=== PATIENT | female | born 1995 | race Caucasian/White ===

== ENCOUNTER → 2018-03-25 | Outpatient (CLI) | payer OTHER ==
[2016-12-12 05:10] VITALS: BMI 30.0
[~2018-03-25] MED LIST: CETI10CA8 PO; DIPH-911 PO; DIPH50LI; DOCU240C67 PO; FERR-53 PO; IBUP800T37 PO; LOR5/325 PO; PENI-24 PO; PER PO; PRED-1 PO; PRED20TA6 PO; PREN-127 PO; VIT-22 PO
[2018-03-25 13:50] LABS: PLATELET COUNT, AUTOMATED 199 K/uL (150-450)
== END ==
LOC: LAB 08:26
PROVIDERS: ATTEND Student in an Organized Health Care Education/Training Program
DX: Z34.91 Encounter for supervision of normal pregnancy, unspecified, first trimester (principal)
CPT/HCPCS: 36415; 81001; 85025; 86592; 86703; 86762; 86850; 86900; 86901; 87088; 87340

== ENCOUNTER → 2018-04-11 | Outpatient (CLI) | payer OTHER ==
[2016-12-12 05:10] VITALS: BMI 30.0
== END ==
LOC: LAB 13:36
PROVIDERS: ATTEND Student in an Organized Health Care Education/Training Program
DX: Z34.91 Encounter for supervision of normal pregnancy, unspecified, first trimester (principal)
CPT/HCPCS: 87491; 87591

== ENCOUNTER 2018-05-16 16:39 | Emergency (ER) | payer OTHER ==
[2016-12-12 05:10] VITALS: Wt 57.6 kg
[~2018-05-16 16:39] MED LIST changes: +FLU60VIA41 IM
[2018-05-16 16:45] VITALS: BP 110/71
--- NOTE | 2018-05-16 16:54 | ER Report ---
History and Physical Time Seen By MD: 16:47 Hx. of Stated Complaint: vomiting since 6am. now has diarrhea. worried about dehydration. 14 weeks HPI/ROS CHIEF COMPLAINT: Nausea, vomiting and diarrhea HISTORY OF PRESENT ILLNESS: This is a 23-year-old female, 14 weeks , who presents to the emergency department for nausea, vomiting and diarrhea. Patient states that she has had otherwise an unremarkable so far she is a , a few episodes of nausea during the otherwise unremarkable. Today she presents with nausea, vomiting and diarrhea. No blood noted in either of those. No spotting, vaginal discharged, abdominal cramping or back pain. No fevers or chills. No chest pain or shortness of breath. REVIEW OF SYSTEMS: Constitutional: No fever, no chills. Eyes: No discharge. ENT: No sore throat. Cardiovascular: No chest pain, no palpitations. Respiratory: No cough, no shortness of breath. Gastrointestinal: As above. TOOL SUPERVISOR: As above. Genitourinary: No hematuria. Musculoskeletal: No back pain. Skin: No rashes. Neurological: No headache. Allergies: Coded Allergies: No Known Drug Allergies (Unverified , 05/16/18) Home Meds Active Scripts Ondansetron (ZOFRAN ODT) 4 Mg Tab.rapdis, 4 MG PO Q6H PRN for NAUSEA/VOMITING, #20 TAB.CELESTE Prov:MEHRAN ALLEN [facility]- 05/16/18 Reported Medications Vits W-Ca,Fe,Fa(<1MG) ( VITAMINS) 1 Each Tablet, 1 EACH PO DAILY, TAB 11/05/15 Past Medical/Surgical History The patient has a past medical and surgical history of allergic rhinitis, migraines, asthma, . Reviewed Nurses Notes: Yes Hx Smoking: No Smoking Status: Never Smoker Exposure to Second Hand Smoke?: No Hx Substance Use Disorder: No Hx Alcohol Use: No Constitutional Vital Sign - Last 24 Hours 05/16/18 16:45 Temp 98.2 Pulse 110 Resp 12 B/P (MAP) 110/71 Pulse Ox 97 O2 Delivery Room Air Physical Exam General Appearance: The patient is alert, has no immediate need for airway protection and no signs of toxicity. Eyes: Pupils equal and round no pallor or injection. ENT, Mouth: Mucous membranes are moist. Respiratory: There are no retractions, lungs are clear to auscultation. Cardiovascular: Regular rate and rhythm. Gastrointestinal: Abdomen is soft, mild tenderness with palpation throughout the abdomen, no masses, bowel sounds normal. Neurological: Alert and oriented 4. Moving all tremors. Following all commands. No focal neuro deficits. Skin: Warm and dry, no rashes. Musculoskeletal: Neck is supple non tender. Extremities are nontender, nonswollen and have full range of motion. DIFFERENTIAL DIAGNOSIS: After history and physical exam differential diagnosis abdominal pain in a female including but not limited to ovarian cyst, pelvic inflammatory disease, ovarian torsion, urinary tract infection, and appendicitis. Medical Decision Making Data Points Result Diagram: 05/16/18 1652 05/16/18 165 Laboratory Hematology Test 05/16/18 16:45 05/16/18 16:52 Urine Color Yellow Urine Clarity Slightly-cloudy Urine pH 5.0 pH (4.8-9.5) Urine Specific [place] 1.032 Urine Protein 30 mg/dL (NEGATIVE) Urine Glucose (UA) Negative mg/dL (NEGATIVE) Urine Ketones 80 mg/dL (NEGATIVE) Urine Blood Negative (NEGATIVE) Urine Nitrite Negative (NEGATIVE) Urine Bilirubin Negative (NEGATIVE) Urine Urobilinogen 2.0 mg/dL (0.2-1.9) Urine Leukocyte Esterase Negative (NEGATIVE) Urine RBC 2 /HPF (0-2/HPF) Urine WBC 2 /HPF (0-5/HPF) Urine Squamous Epithelial Cells Many /LPF (</=FEW) Urine Bacteria Negative /HPF (NONE-FEW) Urine Mucus Few /HPF (NONE-FEW) Red Blood Count 5.56 M/uL (4.17-5.56) Mean Corpuscular Volume 83.7 fL (80.0-96.0) Mean Corpuscular Hemoglobin 28.5 pg (26.0-33.0) Mean Corpuscular Hemoglobin Concent 34.0 g/dL (32.0-36.0) Red Cell Distribution Width 13.4 % (11.5-14.5) Mean Platelet Volume 10.6 fL (7.2-11.1) Neutrophils (%) (Auto) 93.7 % (39.4-72.5) Lymphocytes (%) (Auto) 3.6 % (17.6-49.6) Monocytes (%) (Auto) 2.5 % (4.1-12.4) Eosinophils (%) (Auto) 0.0 % (0.4-6.7) Basophils (%) (Auto) 0.2 % (0.3-1.4) Nucleated RBC Relative Count (auto) 0.1 /100WBC Neutrophils # (Auto) 11.8 K/uL (2.0-7.4) Lymphocytes # (Auto) 0.5 K/uL (1.3-3.6) Monocytes # (Auto) 0.3 K/uL (0.3-1.0) Eosinophils # (Auto) 0.0 K/uL (0.0-0.5) Basophils # (Auto) 0.0 K/uL (0.0-0.1) Nucleated RBC Absolute Count (auto) 0.01 K/uL Peripheral Blood Smear Yes Y/N Sodium Level 138 mmol/L (137-145) Potassium Level 3.6 mmol/L (3.5-5.0) Chloride Level 101 mmol/L (98-107) Carbon Dioxide Level 20 mmol/L (22-31) Blood Urea Nitrogen 13 mg/dl (7-18) Creatinine 0.60 mg/dl (0.52-1.04) Glomerular Filtration Rate Calc > 60.0 Random Glucose 111 mg/dl (75-110) Calcium Level 9.7 mg/dl (8.4-10.2) Total Bilirubin 0.8 mg/dl (0.2-1.3) Aspartate Amino Transf (AST/SGOT) 27 U/L (0-35) Alanine Aminotransferase (ALT/SGPT) 26 U/L (0-56) Alkaline Phosphatase 57 U/L (0-126) Total Protein 8.2 g/dl (6.3-8.2) Albumin 4.5 g/dl (3.5-5.0) Lipase 75 U/L (23-300) Chemistry Test 05/16/18 16:45 05/16/18 16:52 Urine Color Yellow Urine Clarity Slightly-cloudy Urine pH 5.0 pH (4.8-9.5) Urine Specific [place] 1.032 Urine Protein 30 mg/dL (NEGATIVE) Urine Glucose (UA) Negative mg/dL (NEGATIVE) Urine Ketones 80 mg/dL (NEGATIVE) Urine Blood Negative (NEGATIVE) Urine Nitrite Negative (NEGATIVE) Urine Bilirubin Negative (NEGATIVE) Urine Urobilinogen 2.0 mg/dL (0.2-1.9) Urine Leukocyte Esterase Negative (NEGATIVE) Urine RBC 2 /HPF (0-2/HPF) Urine WBC 2 /HPF (0-5/HPF) Urine Squamous Epithelial Cells Many /LPF (</=FEW) Urine Bacteria Negative /HPF (NONE-FEW) Urine Mucus Few /HPF (NONE-FEW) White Blood Count 12.6 k/uL (4.5-11.0) Red Blood Count 5.56 M/uL (4.17-5.56) Hemoglobin 15.8 g/dL (12.0-16.0) Hematocrit 46.5 % (34.0-47.0) Mean Corpuscular Volume 83.7 fL (80.0-96.0) Mean Corpuscular Hemoglobin 28.5 pg (26.0-33.0) Mean Corpuscular Hemoglobin Concent 34.0 g/dL (32.0-36.0) Red Cell Distribution Width 13.4 % (11.5-14.5) Platelet Count 113 K/uL (150-450) Mean Platelet Volume 10.6 fL (7.2-11.1) Neutrophils (%) (Auto) 93.7 % (39.4-72.5) Lymphocytes (%) (Auto) 3.6 % (17.6-49.6) Monocytes (%) (Auto) 2.5 % (4.1-12.4) Eosinophils (%) (Auto) 0.0 % (0.4-6.7) Basophils (%) (Auto) 0.2 % (0.3-1.4) Nucleated RBC Relative Count (auto) 0.1 /100WBC Neutrophils # (Auto) 11.8 K/uL (2.0-7.4) Lymphocytes # (Auto) 0.5 K/uL (1.3-3.6) Monocytes # (Auto) 0.3 K/uL (0.3-1.0) Eosinophils # (Auto) 0.0 K/uL (0.0-0.5) Basophils # (Auto) 0.0 K/uL (0.0-0.1) Nucleated RBC Absolute Count (auto) 0.01 K/uL Peripheral Blood Smear Yes Y/N Glomerular Filtration Rate Calc > 60.0 Calcium Level 9.7 mg/dl (8.4-10.2) Total Bilirubin 0.8 mg/dl (0.2-1.3) Aspartate Amino Transf (AST/SGOT) 27 U/L (0-35) Alanine Aminotransferase (ALT/SGPT) 26 U/L (0-56) Alkaline Phosphatase 57 U/L (0-126) Total Protein 8.2 g/dl (6.3-8.2) Albumin 4.5 g/dl (3.5-5.0) Lipase 75 U/L (23-300) Urinalysis Test 05/16/18 16:45 Urine Color Yellow Urine Clarity Slightly-cloudy Urine pH 5.0 pH (4.8-9.5) Urine Specific [place] 1.032 Urine Protein 30 mg/dL (NEGATIVE) Urine Glucose (UA) Negative mg/dL (NEGATIVE) Urine Ketones 80 mg/dL (NEGATIVE) Urine Blood Negative (NEGATIVE) Urine Nitrite Negative (NEGATIVE) Urine Bilirubin Negative (NEGATIVE) Urine Urobilinogen 2.0 mg/dL (0.2-1.9) Urine Leukocyte Esterase Negative (NEGATIVE) Urine RBC 2 /HPF (0-2/HPF) Urine WBC 2 /HPF (0-5/HPF) Urine Squamous Epithelial Cells Many /LPF (</=FEW) Urine Bacteria Negative /HPF (NONE-FEW) Urine Mucus Few /HPF (NONE-FEW) ED Course/Re-evaluation Clinical Indication for ER IV: Hydration, IV Access ED Course The patient was admitted to room. A history of physical were obtained. Differential diagnoses were considered. An IV was started. A CBC, CMP were obtained. A UA was collected. A 1 L normal saline bolus was given. 4 mg IV Zofran was given. WBCs 12.6 with a left shift which is likely from the acute on set of vomiting and diarrhea. Chemistry unremarkable, concentrated urine consistent with the vomiting and diarrhea. The patient states she is feeling much better after the liter of fluid and Zofran. I did recommend that the patient contact Dr. Madrid tomorrow to see if he rather follow-up with her sooner than her May appointment. Patient is also given a prescription for Zofran. Instructed to increase fluids at home clear liquid diet for the next 24-48 hours. Patient had no other concerns, no abdominal cramping or flank pain, no spotting or vaginal discharge. The patient expressed understanding and will contact Dr. Madrid tomorrow morning. No other questions or concerns at this time and discharged home. We did attempt Doppler ultrasounds however we were unable to do this, the patient states that they were unable to do the Doppler ultrasound at her most recent appointment last week. Decision to Disposition Date: May 16, 2018 Decision to Disposition Time: 17:53 Depart Departure Latest Vital Signs Vital Signs Date Time Temp Pulse Resp B/P (MAP) Pulse Ox O2 Delivery O2 Flow Rate FiO2 05/16/18 16:45 98.2 110 12 110/71 97 Room Air Impression: Primary Impression: Gastroenteritis Condition: Improved Disposition: HOME OR SELF-CARE Referrals: JORGITO MADRID DO (PCP) New Scripts Ondansetron (ZOFRAN ODT) 4 Mg Tab.rapdis 4 MG PO Q6H PRN for NAUSEA/VOMITING, #20 TAB.CELESTE Prov: MEHRAN ALLEN PERSONAL CARE AIDE-BC 05/16/18 Patient Instructions: Clear Liquid Diet (ED), First Trimester (ED), Gastroenteritis (ED) Additional Instructions: Be sure to call Dr. Land office tomorrow to see if he would like you to follow up sooner than your May appointment. I would recommend a clear liquid diet for the next 24-48 hours, then ease back into a bland diet with items such as rice, noodles and bananas. Take the Zofran as needed for the nausea and vomiting. Return to the ED for any other concerns or worsening symptoms. Get plenty of rest. Drink plenty of fluids, small frequent sips. MEHRAN ALLEN PERSONAL CARE AIDE-BC May 16, 2018 16:54
[2018-05-16] MEDS ORDERED: NS(*) 0.9% 1000 ML BAG 1,000 ML IV ONE (16:59)
[2018-05-16] MEDS ORDERED: ONDANSETRON 4 MG/2 ML VIAL IVP ONE (17:00)
[2018-05-16 17:09] LABS: PLATELET COUNT, AUTOMATED 113 K/uL (150-450)
[2018-05-16] MEDS ORDERED: ONDA4TAB PO (17:54)
== END 2018-05-16 18:15 | disposition home or self-care (01) ==
LOC: ER 16:49
DX: O26.891 Other specified pregnancy related conditions, first trimester (principal)
CPT/HCPCS: 81001; 83690; 85025; 96361; 96374; 99284; J2405; J7030; 82040; 82247; 82310; 82374; 82435; 82565; 82947; 84075; 84132; 84155; 84295; 84450; 84460; 84520

== ENCOUNTER → 2018-06-27 | Outpatient (CLI) | payer OTHER ==
[2016-12-12 05:10] VITALS: BMI 30.0
[~2018-06-27] MED LIST changes: +ONDA4TAB PO
--- NOTE | 2018-06-27 10:37 | RADIOLOGY IMAGING REPORT ---
[place] [facility] [place] NAME: Silvia Maloney : 1995 MR: [id number] V: [id number] EXAM DATE: ORDERING PHYSICIAN: JORGITO MARX TECHNOLOGIST: Location: [facility] Patient: Silvia Maloney : 1995 Visit/Account:[id number] Date of Sevice: 06/27/2018 [facility] OB ANATOMICAL SURVEY HISTORY: COMPARISON: Anatomic survey TECHNIQUE: Transabdominal imaging was performed for assessment of the fetus and maternal pelvic s tructures. Transvaginal imaging was not performed. FINDINGS: Intrauterine gestations: One. presentation: Breech. With the head towards the maternal right heart rate: 142 bpm. Amniotic fluid volume: Normal; JACOB 17.97 cm; MVP 5.13 cm. Placenta: Anterior. Uterus: Gravid, otherwise grossly unremarkable where visualized. Maternal adnexa/ovaries: Grossly unremarkable, ovaries not visualized. Cervix: closed. Gestational Parameters: BPD: 4.65 cm, 48th percentile HC: 18 cm, 49th percentile AC: 14.96 cm, 41st percentile FL: 3.38 cm, 54th percentile Average ultrasound age (AUA): 20 weeks/ three days Estimated age based on LMP: 20 weeks/ two days Estimated weight (EFW): 350 grams +/- 51 grams, 51st percentile Anatomic Survey: Intracranial structures, 4-chamber heart, stomach, kidneys, urinary bladder, spine, 3-vessel cord and cord insertion are unremarkable. Two upper and two lower extremities visualized. IMPRESSION: Single viable fetus in breech presentation with an estimated gestational age by measurements of 20 we eks and three days. Made of weight is 350 g. Report Dictated By: Karen Balderas MD at 06/27/2018 10:28 AM Report E-Signed By: Karen Balderas MD at 06/27/2018 10:32 AM WSN:[email or web address]
== END ==
LOC: RAD 07:57
PROVIDERS: ATTEND Student in an Organized Health Care Education/Training Program
DX: Z02.9 Encounter for administrative examinations, unspecified (principal)

== ENCOUNTER → 2018-08-17 | Outpatient (CLI) | payer OTHER ==
[2016-12-12 05:10] VITALS: BMI 30.0
[~2018-08-17] MED LIST changes: +DIPH0.5D12 IM
[2018-08-17 16:51] LABS: PLATELET COUNT, AUTOMATED 129 K/uL (150-450)
== END ==
LOC: LAB 10:18
PROVIDERS: ATTEND Student in an Organized Health Care Education/Training Program
DX: Z34.92 Encounter for supervision of normal pregnancy, unspecified, second trimester (principal)
CPT/HCPCS: 36415; 82950; 85025

== ENCOUNTER → 2018-10-17 | Outpatient (CLI) | payer OTHER ==
[2016-12-12 05:10] VITALS: BMI 30.0
[~2018-10-17] MED LIST changes: +DOCU-416 PO; +LEVO50TA86 PO
== END ==
LOC: LAB 10:31
PROVIDERS: ATTEND Student in an Organized Health Care Education/Training Program
DX: O26.819 Pregnancy related exhaustion and fatigue, unspecified trimester (principal); Z36.85 Encounter for antenatal screening for Streptococcus B
CPT/HCPCS: 36415; 82040; 82247; 82310; 82374; 82435; 82565; 82947; 84075; 84132; 84155; 84295; 84443; 84450; 84460; 84520; 85027; 87081

== ENCOUNTER → 2018-10-19 | Outpatient (CLI) | payer OTHER ==
[2016-12-12 05:10] VITALS: BMI 30.0
--- NOTE | 2018-10-19 09:36 | RADIOLOGY IMAGING REPORT ---
FACILITY: [facility] - [place] PATIENT NAME: Silvia Maloney : 1995 MR: [id number] V: [id number] EXAM DATE: ORDERING PHYSICIAN: JORGITO MARX TECHNOLOGIST: Location: [facility] - [place] Patient: Silvia Maloney : 1995 Visit/Account:[id number] Date of Sevice: 10/19/2018 [facility] EXAMINATION: Renal ultrasound. History: Right flank pain during COMPARISON STUDIES: FINDINGS: Kidneys: Right kidney- 10.5 x 4.8 x 4.1 cm Left kidney- 10 x 5.3 x 4.6 cm Uniform and symmetric blood flow in each kidney by Doppler ultrasound. Hydronephrosis: Mild on the left Incompletely imaged is a intrauterine gestation. Resistive index on the right 0.7 and on the left 0.67 Bladder: Prevoid volume 382 mL. Post void residual 21 mL. Bilateral ureteral jets are present. Abdominal aorta and IVC: Aorta and IVC are patent by Doppler ultrasound. IMPRESSION: Mild left hydronephrosis Report Dictated By: Karen Balderas MD at 10/19/2018 9:00 AM Report E-Signed By: Karen Balderas MD at 10/19/2018 9:29 AM MICHELLEN:MOHAN
== END ==
LOC: US 01:00
PROVIDERS: ATTEND Student in an Organized Health Care Education/Training Program
DX: N13.30 Unspecified hydronephrosis (principal)
CPT/HCPCS: 76705

== ENCOUNTER 2018-10-21 11:34 | Outpatient (CLI) | payer OTHER ==
[~2018-10-21] VITALS: Ht 157.5 cm; Wt 70.8 kg
[2018-10-21 12:00] VITALS: BP 122/65; Ht 157.5 cm; Wt 70.8 kg
== END 2018-10-21 12:31 | disposition home or self-care (01) ==
LOC: OB 11:34 → L&D 11:34 → UNDOADMOB 11:34 → OB 11:34 → L&D 12:31 → UNDODISOB 12:31 → EDSTATUS 10-26 14:34
PROVIDERS: ATTEND Student in an Organized Health Care Education/Training Program
DX: O36.8130 Decreased fetal movements, third trimester, not applicable or unspecified (principal); Z3A.36 36 weeks gestation of pregnancy
CPT/HCPCS: 59025; G0378; G0379; 99213

== ENCOUNTER 2018-11-07 05:31 | Inpatient (IN) | payer OTHER ==
[~2018-11-07] VITALS: Ht 160 cm; Wt 73.0 kg
[~2018-11-07 05:31] MED LIST changes: -DIPH0.5D12 IM; +DIPH0.5S2 IM
[2018-11-07] MEDS ORDERED: ceFAZolin(*) 2GM/D5W 50ML 50 ML IVPB PRN (05:32)
[2018-11-07] MEDS ORDERED: FAMOTIDINE(*) 20MG/50ML PREMIX 50 ML IVPB PRN (05:32)
[2018-11-07] MEDS ORDERED: OXYTOCIN 30 UNIT/D5LR 500 ML 500 ML IV PRN ×2 (05:32)
[2018-11-07] MEDS ORDERED: LIDOCAINE/SOD BICARB 8.4% SYR SC PRN (05:35)
[2018-11-07] MEDS ORDERED: ACETAMINOPHEN 500 MG TAB PO PRN (05:35)
[2018-11-07] MEDS ORDERED: ONDANSETRON 4 MG/2 ML VIAL IVP PRN (05:35)
[2018-11-07] MEDS ORDERED: fentaNYL CITR 100 MCG/2 ML AMP IVP PRN (05:35)
[2018-11-07] MEDS ORDERED: METOCLOPRAMIDE 10 MG/2 ML SDV IVP PRN (05:35)
[2018-11-07] MEDS ORDERED: TERBUTALINE SULF 1 MG/ML VIAL SUBQ PRN (05:35)
[2018-11-07] MEDS ORDERED: LIDOCAINE 1% LOCAL 300 MG/30ML INJ PRN (05:35)
[2018-11-07] MEDS ORDERED: LR(*) 1000 ML BAG 1,000 ML ONE (05:46)
[2018-11-07] MEDS ORDERED: OXYTOCIN 30 UNIT/D5LR 500 ML 500 ML ONE (05:47)
[2018-11-07] MEDS: LR(*) 1000 ML BAG 1,000 ML IV PRN ×2 (06:05→09:16)
[2018-11-07 06:13] LABS: PLATELET COUNT, AUTOMATED 150 K/uL (150-450)
[2018-11-07 06:35] VITALS: BP 135/84; Ht 160 cm; Wt 73.0 kg
[2018-11-07] MEDS ORDERED: LIDO/EPI 2% MPF 1:200,000 20ML EPI PRN (07:55)
[2018-11-07] MEDS ORDERED: FENTANYL/ROPIVACAINE 100 ML BAG EPI PRN (07:55)
[2018-11-07] MEDS ORDERED: BUPIVACAINE 0.5% INJ 30ML VIAL EPI PRN (07:55)
[2018-11-07] MEDS ORDERED: BUPIVACAINE 0.25% MPF INJ EPI PRN (07:55)
[2018-11-07] MEDS ORDERED: LIDOCAINE/PF 2% 200MG/10ML AMP 200 MG/10 ML AMPUL EPI PRN (07:55)
[2018-11-07] MEDS ORDERED: fentaNYL CITR 100 MCG/2 ML AMP IT PRN (07:55)
[2018-11-07] MEDS ORDERED: ePHEDrine 25 MG/5 ML DISP.SYR IVP ONE (09:08)
--- NOTE | 2018-11-07 10:14 | Anesthesia OB Pre-Anes Eval ---
History of Present Illness Anesthesia Start Date: Nov 07, 2018 Anesthesia Start Time: 09:33 OB Anesthesia Diagnosis: induction - elective EDC: Nov 12, 2018 : 4 Para: 1 Vital Signs: Vital Signs Date Time Temp Pulse Resp B/P (MAP) Pulse Ox O2 Delivery O2 Flow Rate FiO2 11/07/18 06:35 97.4 116 22 135/84 (101) Room Air Pain Ratin (with contractions before epidural placement.) Result Diagram: 11/07/18 0602 Height (Inches): 63.00 Weight (Pounds): 161 Past Medical History Medical History: other (hypothyroidism) Surgical History: noncontributory Previous Anesthesia: epidural Attended Childbirth Classes?: No Hx Anesthesia Reactions: No Hx Family Anesthesia Reaction: No Past Complications: other (gestational thrombocytopenia requiring steroid treatment with last .) Home Meds Active Scripts Levothyroxine Sodium (LEVOTHYROXINE SODIUM) 50 Mcg Tablet, 50 MCG PO QDAY, #45 TAB 1 Refill Prov:JORGITO MARX 10/18/18 Reported Medications Docusate Sodium (COLACE) 100 Mg Capsule, 100 MG PO DAILY, CAPSULE 09/08/18 Vits W-Ca,Fe,Fa(<1MG) ( VITAMINS) 1 Each Tablet, 1 EACH PO DAILY, TAB 11/05/15 Allergies: Coded Allergies: No Known Drug Allergies (Unverified , 05/16/18) Anesthesia OB ROS Neurological: migraines/headaches ENT: Denies Tooth caps, Denies Loose teeth, Denies Chipped teeth, Denies Dentures, Denies Bridges, Denies Retainers, Denies Veneers, Denies Implants, Denies Tongue ring, Denies Other Pulmonary: asthma (exercise induced.) Airway Class: ll Cardiovascular ROS: No edema, No arrhythmia, No other GI ROS: clear liquids ROS: No Herpes, No STD(s), No Liver Disease, No Renal Disease, No Other Endocrine ROS: thyroid disorder (hypothyroidism) Musculoskeletal ROS: No low back pain, No low back injury, No scoliosis, No other ASA Classification: 2 Assessment and Plan Anesthesia Plan: LEB (dural puncture technique) DOUG ESCALANTE CRNA Nov 07, 2018 10:14
--- NOTE | 2018-11-07 10:18 | Procedure Note ---
Anesthetic Placement Note Anesthesia Plan: LEB Permit for Anesthesia Signed: Yes Anesthesia Technique: Patient Sitting Anesthesia Prep: Chlorhexidine Interspace: L 3-4 Local Anesthetic: 1% Lidocaine, 25 Gauge Needle Amount Local - cc's: 3 Anesthesia Needle: 17g Touhy/Schliff Anesthesia Attempts: 1 Loss of Resistance: Normal Saline Depth of ROYAL (cm): 4 Epidural Needle Placement: No CSF, No Blood, No Parasthesia Intrathecal Needle: 27 Gauge Pencan Cerebral Spinal Fluid: Yes, Clear Catheter Insertion (cm): 9 (9 cm at skin.) Catheter Type: Mirza - Spring Wound Epidural Dressing: Tegaderm, Tape Anesthesia Tray: Lot Number ([id number]), Expiration Date (03/18/2020), Reference Number ([id number]) Anesthesia Medications: Epidural Test Dose: 1.5 Lido/Epi (1:200,000), Dose - mL (5 mL incrementally), Time (0948), Negative Epidural Loading Dose: 0.2% Ropivicaine, With Fentanyl 2mcg/ml, Dose - ml (5), Time (0959) Epidural Infusion: 0.2% Ropivicaine, With Fentanyl 2mcg/ml, Start Time: (0959) Epidural Pump Setting: Bolus Dose - mL (5), Lockout - Minutes (20), Maintenance Rate - mL/hr (7), Maximum per Hour - mL (17) Complications: None Comment: 100 mcg Fentanyl via epidural at 0952 DOUG ESCALANTE CRNA Nov 07, 2018 10:18
--- NOTE | 2018-11-07 11:38 | Anesthesia Progress Note ---
Progress/Maintenance Anesthesia Note Date: Nov 07, 2018 Anesthesia Note Time: 11:32 Pain Intensity: 0 Pump: On Pump Rate (ML/HR): 7 Motor Level: Bending Knees-Bilateral Dilatation: 10 Assessment and Plan Anesthesia Plan: LEB Assessment: Male delivered at [address] Madrid Anesthesia Stop Day: Nov 07, 2018 Anesthesia Stop Time: 11:32 DOUG ESCALANTE CRNA Nov 07, 2018 11:38
[2018-11-07] MEDS ORDERED: LANOLIN OINT 7 GM TUBE TP PRN (12:45)
[2018-11-07] MEDS ORDERED: HYDROCORTISONE 2.5% CR 30GM TB PR PRN (12:45)
[2018-11-07] MEDS ORDERED: BENZOCAINE 20% 60 ML BTL TP PRN (12:45)
[2018-11-07] MEDS ORDERED: ACETAMINOPHEN 325 MG TAB PO PRN (12:45)
[2018-11-07] MEDS ORDERED: MAGNESIUM HYDROXIDE* 30ML UDCP PO PRN (12:45)
[2018-11-07] MEDS ORDERED: GLYCERIN/WITCH HAZEL LEAF 1 PK TOP PRN (12:45)
[2018-11-07] MEDS: IBUPROFEN 800 MG TAB PO SCH ×2 (13:26→20:25)
[2018-11-07 15:50] VITALS: BP 120/63
--- NOTE | 2018-11-07 16:09 | History & Physical ---
History of Present Illness Age of Patient: 23 : 4 Para or TPAL: 1 EDC per LMP: Nov 12, 2018 Estimated Gestational Age: 39.2 Chief Complaint IOL History of Present Illness 23-year-old 4 para 1 at 39-2/7 weeks gestation by a 1st trimester ultrasound who presents to labor and delivery for an induction of labor. Patient denies any contractions. Reports good movement. Reports no loss of amniotic fluid or vaginal bleeding. History Rubella Status: Immune Group B Strep Screen: Negative Obstetrical History: . 1 with history of gestational thrombocytopenia at that . SAB 2. Past Medical History: Hypothyroid History of gestational thrombocytopenia with last Allergies: Coded Allergies: No Known Drug Allergies (Unverified , 05/16/18) Social History: , present and supportive. Works at [employer]. No use of alcohol, tobacco, or illicit drugs. S/P: Randy Med Rec Home Meds Active Scripts Levothyroxine Sodium (LEVOTHYROXINE SODIUM) 50 Mcg Tablet, 50 MCG PO QDAY, #45 TAB 1 Refill Prov:JORGITO MARX DO 10/18/18 Reported Medications Docusate Sodium (COLACE) 100 Mg Capsule, 100 MG PO DAILY, CAPSULE 09/08/18 Vits W-Ca,Fe,Fa(<1MG) ( VITAMINS) 1 Each Tablet, 1 EACH PO DAILY, TAB 11/05/15 Review of Systems All Systems Reviewed/Normal: Yes, Except as Noted Constitutional: No Fever, No Weight Loss, No Weight Gain, No Chills, No Night Sweats, No Other Neurological: No Syncope, No Confusion, No Weakness, No Dizziness, No Slurred Speech, No Other Eyes: No Vision Change, No Loss of Vision, No Photophobia, No Other ENT: No Hearing Loss, No Sinus Congestion, No Sore Throat, No Ear Ache, No Tinnitus, No Other Cardiovascular: No Chest Pain, No Palpitations, No Orthostatic Hypotension, No Other Respiratory: No Shortness of Breath, No Cough, No Wheezing, No Other Gastrointestinal: No Nausea, No Vomiting, No Diarrhea, No Dysphagia, No Constipation, No Early Satiety, No Hematemesis, No Hematochezia, No Melena, No Abdominal Pain, No Other Genitourinary: No Dysuria, No Hematuria, No Urinary Incontinence, No Other Musculoskeletal: No Pain, No Sprain, No Strain, No Impaired Mobility, No Other Psychiatric: No Depression, No Anxiety, No Other Exam General Exam Vital Signs Vital Signs Date Time Temp Pulse Resp B/P (MAP) Pulse Ox O2 Delivery O2 Flow Rate FiO2 11/07/18 06:35 97.4 116 22 135/84 (101) Room Air General Apperance: Alert/Awake/No Acute Distress Neuro: No Gross deficits Eyes: Normal Extraocular Movement & Vison ENT: Normal Cardiovascular: Regular Rate and Rhythm Respiratory: No Respiratory Distress Abdomen: Soft, Non-Tender, Non-Distended, Gravid - Non-Tender : Normal Musculoskeletal: No Weakness/Pain Extremities: No Cyanosis,Clubbing or Edema Psychological: Alert & Oriented X3, Appropriate Mood & Affect Vaginal Discharge/Fluid?: Clear Fluid (with amniotomy) Cervical Dialation: 4 Cervical Effacement (%): 80 Cervical Consistency: Soft Cervical Position: Anterior Station: -2 Presentation: Vertex Uterine Contractions(Q min): 2 Uterine Contraction Strength: Mild UC Resting Tone: Soft Fetus Feeling Movement?: Yes Heart Tone Variabilty: Moderate FHT Accelerations: 15X15 FHT Decelerations: None FHT Category: I Medical Decision Making Data Points Result Diagram: 11/07/18 0602 Pre-Admit Course Medical Record Review: Yes VTE Prophylasis: Adult Deep Vein Thrombosis/Pulmonary: No Assessment and Plan PROCEDURE TECH Assessment: Stable PROCEDURE TECH Plan: Routine Labor/Induct Care Problems: (1) Elective induction of labor planned Status: Acute Assessment & Plan: Patient undergoing oxytocin induction status post amniotomy with clear amniotic fluid. Expect vaginal delivery. Epidural if want for pain control. (2) 39 weeks gestation of Status: Acute JORGITO MARX DO Nov 07, 2018 16:09
--- NOTE | 2018-11-07 16:15 | OB Delivery Note ---
Delivery Note Vaginal Delivery Type: Spont. Vaginal Delivery Delivery Date: Nov 07, 2018 Delivery Time: 11:32 Estimated Gestational Age(wks): 39.2 Length of Labor Stage I (hrs): 3 Length of Labor Stage II (hrs): 0.5 Labor Stage III (minutes): 6 Delivery Anesthesia: Epidural Infant Sex: Male Infant Weight (gms): 3442 (7#9oz) [place] Apgars: 1 Minute (9), 5 Minute (10) Repair Needed: Vaginal, 2nd Degree Estimated Blood Loss: 500 Grades 1 Through 5 Teacher in Attendence: JORGITO Dunne DO Nov 07, 2018 16:15
[2018-11-07] MEDS: APAP/HYDROCODONE 325/5 TAB PO PRN (19:29)
[2018-11-07 19:50] VITALS: BP 116/69
[2018-11-07] MEDS: DOCUSATE CALCIUM 240 MG CAP PO SCH (20:25)
[2018-11-07 23:30] VITALS: BP 108/62
--- NOTE | 2018-11-08 04:16 | DELIVERY NOTE ---
DELIVERY DATE: November 07, 2018 SURGEON: Rufino Madrid DO ANESTHESIA: Epidural. PREOPERATIVE DIAGNOSES 1. A 23-year-old 4, para 1, at 39-2/7 weeks' gestation. 2. Induction of labor. POSTOPERATIVE DIAGNOSES 1. A 23-year-old 4, para 1, at 39-2/7 weeks' gestation. 2. Induction of labor. 3. Delivered. PROCEDURE Spontaneous vaginal delivery with repair of second-degree midline and periclitoral lacerations. FINDINGS Live-born male at 1132 with Apgars of 9 and 10, weighing 3442 g (7 pounds 9 ounces); three-vessel cord; intact placenta over second-degree midline laceration. PATHOLOGY None. ESTIMATED BLOOD LOSS 500 mL. COMPLICATIONS None known. CONDITION Stable x2. Mother and to remain in the LDRP. COUNTS Correct for all needles, laps, sponges and instruments. LABOR SUMMARY Patient is a 23-year-old 4, para 1, at 39-2/7 weeks' gestation, who presented to Labor and Delivery for an elective labor induction. Patient was initially 4 cm on exam. She was started on Oxytocin, did achieve an adequate contraction pattern of contractions every two minutes. She then underwent amniotomy with clear amniotic fluid. Shortly after amniotomy, pain became intense, and patient desired an epidural for pain control. She was granted one accordingly. Patient progressed quickly to 10 cm, felt significant urge to push, was given proper instruction by nursing staff. After a few trial pushes, the delivery team was called and assembled. DELIVERY SUMMARY Patient was placed in dorsal lithotomy position. She was prepped and draped in the usual sterile manner. Upon maternal pushing, the 's head delivered in a controlled manner, followed by the anterior shoulders with gentle downward motion, the posterior shoulders with gentle upward motion, with the remainder of the infant's body delivering spontaneously. Mouth and nose were bulb-suctioned. The cord was clamped x2 and cut by the 's father. The infant remained on maternal chest during this entire process. Cord blood gases were obtained, and the placenta delivered spontaneously with gentle cord traction. Oxytocin was infused to help the uterine tone. Uterus was massaged and deemed firm. Next, upon inspection of the perineum, vagina, cervix, and labia, it was noted that there was a second-degree midline laceration as well as a periclitoral laceration. The second-degree midline laceration was repaired in the usual manner using a 3-0 Vicryl. The periclitoral laceration was repaired with a 4-0 Vicryl in interrupted manner. Once hemostasis was achieved, the patient was cleaned, the labor bed was reassembled, and the mother and were allowed to continue to yanez. DOMI
[2018-11-08 04:55] VITALS: BP 101/58
[2018-11-08] MEDS: IBUPROFEN 800 MG TAB PO SCH ×2 (04:58→14:23)
[2018-11-08] MEDS: APAP/HYDROCODONE 325/5 TAB PO PRN (07:47)
[2018-11-08 07:48] VITALS: BP 105/60
[2018-11-08] MEDS: DOCUSATE CALCIUM 240 MG CAP PO SCH (08:23)
[2018-11-08 11:22] VITALS: BP 109/58
--- NOTE | 2018-11-08 11:41 | Anesthesia Post Eval Note ---
Anesthesia Post Eval Note Vital Signs Date Time Temp Pulse Resp B/P (MAP) Pulse Ox O2 Delivery O2 Flow Rate FiO2 11/08/18 11:22 97.2 94 18 109/58 (75) 11/08/18 04:55 Room Air 11/07/18 15:50 93 Pt able to participate in Eval: Yes Cardiovascular Status: Satisfactory Respiratory Status: Satisfactory Pain Managment: Satisfactory PO Nausea/Vomiting: Satisfactory Temperature Management: Satisfactory Mental Status: Satisfactory, Alert, Oriented X3 Post-Op Hydration Status: Satisfactory, Tolerating PO Well, Voiding w/o Dif ficulty Anesthesia Type: LEB Anesthesia Tolerance: no anesthesia complications noted. DOUG ESCALANTE CRNA Nov 08, 2018 11:41
--- NOTE | 2018-11-08 11:56 | OB/GYN Progress Note ---
OB Subjective Progress Notes Subjective Patient is day #1 from a spontaneous vaginal delivery with second- degree midline laceration and periclitoral laceration. Today patient reports pain has been controlled with ibuprofen and Tylenol. Has not required any narcotic pain medicine for pain control. Patient states she's been ambulatory, voiding and having minimal bleeding with out any problems. Patient reports breast-feeding without any difficulty. Patient desires to be discharged home if possible today. GI: NEG Nausea, NEG Vomiting, NEG Flatus, NEG Bowel Movement : Voiding Well, Vaginal Bleeding, Moderate Pain: Mild, Comfortable, Tolerating PO Pain Meds Neurological: No Headache, No Other Eyes: No Visual Disturbances OB Objective Physical Exam Vital Signs Date Time Temp Pulse Resp B/P (MAP) Pulse Ox O2 Delivery O2 Flow Rate FiO2 11/08/18 11:22 97.2 94 18 109/58 (75) 11/08/18 04:55 Room Air 11/07/18 15:50 93 Intake and Output 11/08/18 07:00 Intake Total 3475 ml Output Total 250 ml Balance 3225 ml Intake Oral 2000 ml IV Total 1475 ml Output Urine Total 250 ml # Voids 10 General Appearance: Alert/Awake/No Acute Distress Neurological: No Gross deficits Eyes: Normal Extraocular Movement & Vison Cardiovascular: Normal Rhythm & Peripheral Pulses, Regular Rate and Rhythm Respiratory: No Respiratory Distress Abdomen: Soft, Non-Tender, Non-Distended, Fundus Firm Extremities: No Cyanosis,Clubbing or Edema Psychological: Alert & Oriented X3, Appropriate Mood & Affect Result Diagram: 11/08/18 0730 Assessment and Plan [employer] ADMINISTRATOR Plan: Routine Post- Care, Discharge Home Today Problems: (1) Elective induction of labor planned Status: Resolved (2) 39 weeks gestation of Status: Resolved Assessment & Plan: day #1 from a spontaneous vaginal delivery. Patient will be discharged home today. Patient follow up in 2 weeks for postpart um exam. Patient desires ibuprofen only for prescriptions. JORGITO MARX DO Nov 08, 2018 11:56
--- NOTE | 2018-11-08 11:59 | OB/GYN Discharge Summary ---
Discharge Summary Reason for Hosp/Final Diag: (1) Elective induction of labor planned Status: Resolved Hospital Course & Plan: Patient presented for an elective induction of labor she was noted to be 4 cm upon admission. Patient underwent oxytocin induction with amniotomy and quickly progressed to complete did receive an epidural for pain control. Patient delivered just before noon. Patient remained in the hospital for one day . She desired to be discharged home post day 1. Patient was ambulatory, voiding, breast-feeding without difficulty. Minimal bleeding. And tolerating regular diet. (2) 39 weeks gestation of Status: Resolved Lates Vital Signs Vital Signs Date Time Temp Pulse Resp B/P (MAP) Pulse Ox O2 Delivery O2 Flow Rate FiO2 11/08/18 11:22 97.2 94 18 109/58 (75) 11/08/18 04:55 Room Air 11/07/18 15:50 93 Weight (Pounds): 161 Result Diagram: 11/08/18 0730 Condition: Improved Discharge: Home Home Meds Active Scripts Levothyroxine Sodium (LEVOTHYROXINE SODIUM) 50 Mcg Tablet, 50 MCG PO QDAY, #45 TAB 1 Refill Prov:JORGITO MARX DO 10/18/18 Reported Medications Docusate Sodium (COLACE) 100 Mg Capsule, 100 MG PO DAILY, CAPSULE 09/08/18 Vits W-Ca,Fe,Fa(<1MG) ( VITAMINS) 1 Each Tablet, 1 EACH PO DAILY, TAB 11/05/15 Follow up with: [facility] [phone], Dr. Marx [phone] Follow up in: 6 wks PP or PO, 2 wks PO Discharge Diet: As Tolerates, Resume Prior Admit Diet, Increase Fluid Intake Discharge Activity: As Tolerates, Pelvic Rest JORGITO MARX DO Nov 08, 2018 11:59
[2018-11-09] MEDS ORDERED: INFLUENZA VIRUS VAC 0.5ML SYR IM ONLY ONE (09:00)
[2018-11-09] MEDS ORDERED: MEASLES,MUMP,RUBELLA VAC 0.5ML SUBQ ONE (09:00)
[2018-11-09] MEDS ORDERED: DIPHTH/TETANUS/ACEL. PERTUSSIS IM ONLY ONE (09:00)
== END 2018-11-08 14:54 | disposition home or self-care (01) | DRG 807 ==
LOC: OB 05:31
PROVIDERS: ADMIT Student in an Organized Health Care Education/Training Program; ATTEND Student in an Organized Health Care Education/Training Program
PROC: 10E0XZZ Delivery of Products of Conception, External Approach (ICD-10-PCS; principal; 2018-11-07)
PROC: 0KQM0ZZ Repair Perineum Muscle, Open Approach (ICD-10-PCS; 2018-11-07)
PROC: 10907ZC Drainage of Amniotic Fluid, Therapeutic from Products of Conception, Via Natural or Artificial Opening (ICD-10-PCS; 2018-11-07)
PROC: 3E033VJ Introduction of Other Hormone into Peripheral Vein, Percutaneous Approach (ICD-10-PCS; 2018-11-07)
DX: O99.284 Endocrine, nutritional and metabolic diseases complicating childbirth (principal); Z37.0 Single live birth; E03.9 Hypothyroidism, unspecified; O70.1 Second degree perineal laceration during delivery; Z3A.39 39 weeks gestation of pregnancy
CPT/HCPCS: 36415; 85025; 85027; 86850; 86900; 86901; J2590; J7120

== ENCOUNTER 2018-11-15 14:20 | Emergency (ER) | payer OTHER ==
[2018-11-07 06:35] VITALS: Wt 54.4 kg
--- NOTE | 2018-11-15 14:44 | ER Report ---
History and Physical Time Seen By MD: 14:44 Hx. of Stated Complaint: POST DAY 8. WENT TO RESTROOM. FELT LIKE SHE WAS "WETTING HER PANTS" AFTER. RETURNED TO BATHRROM AND SAW A STEADY STREAM OF BLOOD. DENIES ABD PAIN OR CRAMPS. HPI/ROS CHIEF COMPLAINT: bleeding HISTORY OF PRESENT ILLNESS: 23-year-old female patient presents to emergency room with complaint of bleeding. Patient states that she had been doing fine and hadn't noticed any blood for the last 2 days. She states today she went to the bathroom and she had done she felt like she was tripping. She states when she lost she saw blood. She put on a pad inside come in to the emergency room for further evaluation. Patient states that the blood seemed to pour out of her fairly quickly. Patient states she one come in and be evaluated. Patient states she does feel slightly lightheaded. She denies any nausea, vomiting or diarrhea. Patient denies having any fevers or chills. Patient denies having any pain. REVIEW OF SYSTEMS: Respiratory: No cough, no dyspnea. Cardiovascular: No chest pain, no palpitations. Gastrointestinal: No vomiting, no abdominal pain. Musculoskeletal: No back pain. Allergies: Coded Allergies: No Known Drug Allergies (Unverified , 11/15/18) Home Meds Active Scripts Methylergonovine Mal 0.2 Mg Tab (METHERGINE 0.2 MG TAB) 0.2 Mg Tablet, 0.2 MG PO Q6H, #3 TAB Prov:MYRNAHUYEN NILS 11/15/18 Levothyroxine Sodium (LEVOTHYROXINE SODIUM) 50 Mcg Tablet, 50 MCG PO QDAY, #45 TAB 1 Refill Prov:JORGITO MADRID DO 10/18/18 Discontinued Reported Medications Docusate Sodium (COLACE) 100 Mg Capsule, 100 MG PO DAILY, CAPSULE 09/08/18 Vits W-Ca,Fe,Fa(<1MG) ( VITAMINS) 1 Each Tablet, 1 EACH PO DAILY, TAB 11/05/15 Past Medical/Surgical History Patient has a past medical history of asthma, hypothyroidism. Patient denies any surgical history. Reviewed Nurses Notes: Yes Hx Smoking: Yes Smoking Status: Never Smoker Exposure to Second Hand Smoke?: Yes Hx Substance Use Disorder: No Hx Alcohol Use: No Constitutional Vital Sign - Last 24 Hours 11/15/18 11/15/18 11/15/18 11/15/18 14:35 15:28 15:29 15:30 Temp 98.3 Pulse 113 82 Resp 16 B/P (MAP) 118/85 100/66 (77) 107/69 (82) 103/74 (84) Pulse Ox 94 94 11/15/18 11/15/18 15:33 16:00 Pulse 73 80 75 94 B/P (MAP) 100/66 (77) 107/69 (82) 103/74 (84) Pulse Ox 94 94 O2 Delivery Room Air Physical Exam General Appearance: The patient is alert, has no immediate need for airway protection and no current signs of toxicity. Respiratory: Chest is non tender, lungs are clear to auscultation. Cardiac: regular rate and rhythm Gastrointestinal: Abdomen is soft and non tender, no masses, bowel sounds normal. Musculoskeletal: Neck: Neck is supple and non tender. Extremities have full range of motion and are non tender. Skin: No rashes or lesions. DIFFERENTIAL DIAGNOSIS: After history and physical exam differential diagnosis was considered for bleeding, retained products of conception. Medical Decision Making Data Points Result Diagram: 11/15/18 1508 11/15/18 1508 Laboratory Hematology Test 11/15/18 14:53 11/15/18 15:08 Urine Color Yellow Urine Clarity Slightly-cloudy Urine pH 6.0 pH (4.8-9.5) Urine Specific [place] 1.030 Urine Protein Trace mg/dL (NEGATIVE) Urine Glucose (UA) Negative mg/dL (NEGATIVE) Urine Ketones Negative mg/dL (NEGATIVE) Urine Blood Large (NEGATIVE) Urine Nitrite Negative (NEGATIVE) Urine Bilirubin Negative (NEGATIVE) Urine Urobilinogen 0.2 mg/dL (0.2-1.9) Urine Leukocyte Esterase Moderate (NEGATIVE) Urine RBC 35-45 /HPF (0-2/HPF) Urine WBC 25-30 /HPF (0-5/HPF) Urine Squamous Epithelial Cells Rare /LPF (</=FEW) Urine Bacteria Few /HPF (NONE-FEW) Urine Mucus None /HPF (NONE-FEW) Red Blood Count 4.62 M/uL (4.17-5.56) Mean Corpuscular Volume 84.7 fL (80.0-96.0) Mean Corpuscular Hemoglobin 28.2 pg (26.0-33.0) Mean Corpuscular Hemoglobin Concent 33.3 g/dL (32.0-36.0) Red Cell Distribution Width 12.9 % (11.5-14.5) Mean Platelet Volume 9.9 fL (7.2-11.1) Neutrophils (%) (Auto) 76.8 % (39.4-72.5) Lymphocytes (%) (Auto) 16.0 % (17.6-49.6) Monocytes (%) (Auto) 5.6 % (4.1-12.4) Eosinophils (%) (Auto) 1.1 % (0.4-6.7) Basophils (%) (Auto) 0.5 % (0.3-1.4) Nucleated RBC Relative Count (auto) 0.2 /100WBC Neutrophils # (Auto) 7.4 K/uL (2.0-7.4) Lymphocytes # (Auto) 1.5 K/uL (1.3-3.6) Monocytes # (Auto) 0.5 K/uL (0.3-1.0) Eosinophils # (Auto) 0.1 K/uL (0.0-0.5) Basophils # (Auto) 0.0 K/uL (0.0-0.1) Nucleated RBC Absolute Count (auto) 0.02 K/uL Prothrombin Time 13.1 seconds (12.0-14.4) Prothromb Time International Ratio 0.99 Activated Partial Thromboplast Time 30 seconds (23-35) Sodium Level 139 mmol/L (137-145) Potassium Level 3.7 mmol/L (3.5-5.0) Chloride Level 108 mmol/L (98-107) Carbon Dioxide Level 22 mmol/L (22-31) Blood Urea Nitrogen 16 mg/dl (7-18) Creatinine 0.90 mg/dl (0.52-1.04) Glomerular Filtration Rate Calc > 60.0 Random Glucose 114 mg/dl (75-110) Calcium Level 9.4 mg/dl (8.4-10.2) Total Bilirubin 0.3 mg/dl (0.2-1.3) Aspartate Amino Transf (AST/SGOT) 25 U/L (0-35) Alanine Aminotransferase (ALT/SGPT) 19 U/L (0-56) Alkaline Phosphatase 104 U/L (0-126) Total Protein 7.7 g/dl (6.3-8.2) Albumin 4.1 g/dl (3.5-5.0) Chemistry Test 11/15/18 14:53 11/15/18 15:08 Urine Color Yellow Urine Clarity Slightly-cloudy Urine pH 6.0 pH (4.8-9.5) Urine Specific [place] 1.030 Urine Protein Trace mg/dL (NEGATIVE) Urine Glucose (UA) Negative mg/dL (NEGATIVE) Urine Ketones Negative mg/dL (NEGATIVE) Urine Blood Large (NEGATIVE) Urine Nitrite Negative (NEGATIVE) Urine Bilirubin Negative (NEGATIVE) Urine Urobilinogen 0.2 mg/dL (0.2-1.9) Urine Leukocyte Esterase Moderate (NEGATIVE) Urine RBC 35-45 /HPF (0-2/HPF) Urine WBC 25-30 /HPF (0-5/HPF) Urine Squamous Epithelial Cells Rare /LPF (</=FEW) Urine Bacteria Few /HPF (NONE-FEW) Urine Mucus None /HPF (NONE-FEW) White Blood Count 9.6 k/uL (4.5-11.0) Red Blood Count 4.62 M/uL (4.17-5.56) Hemoglobin 13.0 g/dL (12.0-16.0) Hematocrit 39.1 % (34.0-47.0) Mean Corpuscular Volume 84.7 fL (80.0-96.0) Mean Corpuscular Hemoglobin 28.2 pg (26.0-33.0) Mean Corpuscular Hemoglobin Concent 33.3 g/dL (32.0-36.0) Red Cell Distribution Width 12.9 % (11.5-14.5) Platelet Count 297 K/uL (150-450) Mean Platelet Volume 9.9 fL (7.2-11.1) Neutrophils (%) (Auto) 76.8 % (39.4-72.5) Lymphocytes (%) (Auto) 16.0 % (17.6-49.6) Monocytes (%) (Auto) 5.6 % (4.1-12.4) Eosinophils (%) (Auto) 1.1 % (0.4-6.7) Basophils (%) (Auto) 0.5 % (0.3-1.4) Nucleated RBC Relative Count (auto) 0.2 /100WBC Neutrophils # (Auto) 7.4 K/uL (2.0-7.4) Lymphocytes # (Auto) 1.5 K/uL (1.3-3.6) Monocytes # (Auto) 0.5 K/uL (0.3-1.0) Eosinophils # (Auto) 0.1 K/uL (0.0-0.5) Basophils # (Auto) 0.0 K/uL (0.0-0.1) Nucleated RBC Absolute Count (auto) 0.02 K/uL Prothrombin Time 13.1 seconds (12.0-14.4) Prothromb Time International Ratio 0.99 Activated Partial Thromboplast Time 30 seconds (23-35) Glomerular Filtration Rate Calc > 60.0 Calcium Level 9.4 mg/dl (8.4-10.2) Total Bilirubin 0.3 mg/dl (0.2-1.3) Aspartate Amino Transf (AST/SGOT) 25 U/L (0-35) Alanine Aminotransferase (ALT/SGPT) 19 U/L (0-56) Alkaline Phosphatase 104 U/L (0-126) Total Protein 7.7 g/dl (6.3-8.2) Albumin 4.1 g/dl (3.5-5.0) Coagulation Test 11/15/18 15:08 Prothrombin Time 13.1 seconds Prothromb Time International Ratio 0.99 Activated Partial Thromboplast Time 30 seconds Urinalysis Test 11/15/18 14:53 Urine Color Yellow Urine Clarity Slightly-cloudy Urine pH 6.0 pH (4.8-9.5) Urine Specific [place] 1.030 Urine Protein Trace mg/dL (NEGATIVE) Urine Glucose (UA) Negative mg/dL (NEGATIVE) Urine Ketones Negative mg/dL (NEGATIVE) Urine Blood Large (NEGATIVE) Urine Nitrite Negative (NEGATIVE) Urine Bilirubin Negative (NEGATIVE) Urine Urobilinogen 0.2 mg/dL (0.2-1.9) Urine Leukocyte Esterase Moderate (NEGATIVE) Urine RBC 35-45 /HPF (0-2/HPF) Urine WBC 25-30 /HPF (0-5/HPF) Urine Squamous Epithelial Cells Rare /LPF (</=FEW) Urine Bacteria Few /HPF (NONE-FEW) Urine Mucus None /HPF (NONE-FEW) EKG/Imaging Imaging Transvaginal pelvic ultrasound INDICATION: 8 days with vaginal bleeding. COMPARISON: None Available FINDINGS: Uterus measures 13.4 x 6.5 x 10.5 cm. No visualized uterine mass. Double wall endometrial stripe is heterogeneously thickened measuring up to 14 mm. There is fluid and debris within the endometrial canal without visualized internal vascularity. There is no free fluid in the cul-de-sac. Urinary bladder is empty. Pelvic vessels appear unremarkable on this examination. Right ovary measures 2.1 x 1.5 x 1.6 cm and shows normal blood flow and contains several small follicles. Left ovary measures 2.4 x 1.7 x 1.6 cm and shows normal blood flow and contains several small follicles. IMPRESSION: 1. Fluid and debris within the endometrial canal with heterogeneous endometrial thickening. No internal vascularity to suggest retained products of conception however cannot be excluded. Report Dictated By: Velasquez Barnes MD at 11/15/2018 4:52 PM Report E-Signed By: Velasquez Barnes MD at 11/15/2018 4:55 PM ED Course/Re-evaluation ED Course Patient was admitted to an exam room, history physical were obtained. Differential diagnoses were considered. Examination lungs are clear, heart is regular, abdomen is soft and nontender. A CBC, CMP, PT, PTT were done. Lab results were unremarkable. Because patient was complaining of bleeding I did have a type and screen done which was negative. A pelvic ultrasound was done which showed no acute findings. At that time I discussed the case with Dr. Echols, home care chaplain. His recommendation was to go ahead and place the patient on Methergine 0.2 mg 4 times over the next 24 hours. The goal that is to make the uterus clamped down to help stop the bleeding. He also recommended the patient follow-up with Dr. Becker. I discussed this with the patient who verbalized understanding and agreement. We'll go ahead and discharge patient home at this time. Pelvic exam: The vulva was normal no lesions. The vagina did have some bloody discharge, sutures were intact. Patient did have tenderness towards the posterior aspect of the introitus. The exam was performed with a second crusher. Decision to Disposition Date: Nov 15, 2018 Decision to Disposition Time: 17:18 Depart Departure Latest Vital Signs Vital Signs Date Time Temp Pulse Resp B/P (MAP) Pulse Ox O2 Delivery O2 Flow Rate FiO2 11/15/18 16:00 80 94 11/15/18 15:33 100/66 (77) Room Air 107/69 (82) 103/74 (84) 11/15/18 14:35 98.3 16 Impression: Primary Impression: bleeding Condition: Improved Disposition: HOME OR SELF-CARE Referrals: JORGITO MADRID DO (PCP) New Scripts Methylergonovine Mal 0.2 Mg Tab (METHERGINE 0.2 MG TAB) 0.2 Mg Tablet 0.2 MG PO Q6H, #3 TAB Prov: HUYEN NORRIS 11/15/18 Patient Instructions: Bleeding (ED) Additional Instructions: Increase fluid intake. Get plenty of rest. Continue with your current medications. Follow up with Dr. Madrid, call tomorrow to make an appointment. Return to the ER if condition worsens. Problem Qualifiers Primary Impression: bleeding hemorrhage type: unspecified Qualified Codes: O72.1 - Other immediate hemorrhage HUYEN NORRIS Nov 15, 2018 14:44
[2018-11-15] MEDS ORDERED: NS(*) 0.9% 1000 ML BAG 1,000 ML IV ONE (14:49)
[2018-11-15 15:24] LABS: PLATELET COUNT, AUTOMATED 297 K/uL (150-450)
[2018-11-15 15:27] LABS: INR 0.99
[2018-11-15 15:33] VITALS: BP 103/74
--- NOTE | 2018-11-15 16:59 | RADIOLOGY IMAGING REPORT ---
[place] [facility] [place] NAME: Silvia Maloney : 1995 MR: [id number] V: [id number] EXAM DATE: [id number] ORDERING PHYSICIAN: HUYEN NORRIS TECHNOLOGIST: Location: [facility] Patient: Silvia Maloney : 1995 Visit/Account:[id number] Date of Sevice: 11/15/2018 Transvaginal pelvic ultrasound INDICATION: 8 days with vaginal bleeding. COMPARISON: None Available FINDINGS: Uterus measures 13.4 x 6.5 x 10.5 cm. No visualized uterine mass. Double wall endometrial stripe is heterogeneously thickened measuring up to 14 mm. There is fluid and debris within the endometrial canal without visualized internal vascularity. There is no free fluid in the cul-de-sac. Urinary bladder is empty. Pelvic vessels appear unremarkable on this examination. Right ovary measures 2.1 x 1.5 x 1.6 cm and shows normal blood flow and contains several small follic les. Left ovary measures 2.4 x 1.7 x 1.6 cm and shows normal blood flow and contains several small follicl es. IMPRESSION: 1. Fluid and debris within the endometrial canal with heterogeneous endometrial thickening. No accounting intern al vascularity to suggest retained products of conception however cannot be excluded. Report Dictated By: Velasquez Barnes MD at 11/15/2018 4:52 PM Report E-Signed By: Velasquez Barnes MD at 11/15/2018 4:55 PM WSN:[id number]
[2018-11-15] MEDS ORDERED: METH0.2T6 PO (17:19)
[2018-11-15] MEDS ORDERED: METHYLERGONOVINE MAL 0.2MG TAB PO ONE (17:25)
== END 2018-11-15 17:37 | disposition home or self-care (01) ==
LOC: EDSTATUS 14:20 → ER 15:07
DX: O72.1 Other immediate postpartum hemorrhage (principal)
CPT/HCPCS: 76856; 81001; 85025; 85610; 85730; 86850; 86900; 86901; 96360; 99284; J7030; 82040; 82247; 82310; 82374; 82435; 82565; 82947; 84075; 84132; 84155; 84295; 84450; 84460; 84520